=== PATIENT | female | born 1990 | race Caucasian/White ===

== ENCOUNTER → 2016-05-25 | Outpatient (REF) | payer OTHER | LOC: M LAB REF 09:42 | PROVIDERS: ATTEND Physician Assistant | DX: N39.0 Urinary tract infection, site not specified (principal) ==

== ENCOUNTER → 2016-07-30 | Outpatient (REF) | payer OTHER | LOC: M LAB REF 16:22 | PROVIDERS: ATTEND Physician Assistant | DX: R50.9 Fever, unspecified (principal) ==

== ENCOUNTER → 2016-08-09 | Outpatient (CLI) | payer OTHER ==
[2016-08-09 11:46] LABS: MEAN CORPUSCULAR HEMOGLOBIN 27.4 pg (27.0-33.0); MEAN CORPUSCULAR HGB CONC 33.1 g/dl (32.0-36.5); MEAN CORPUSCULAR VOLUME 82.8 fl (80.0-96.0); RED CELL DISTRIBUTION WIDTH 12.5 % (11.5-14.5); WHITE BLOOD COUNT 5.1 K/mm3 (4.0-10.0)
[2016-08-09 12:42] LABS: ALBUMIN 3.8 GM/DL (3.2-5.2); ALBUMIN/GLOBULIN RATIO 1.36 (1.00-1.93); ALKALINE PHOSPHATASE 51 U/L (45-117); ALT/SGPT 19 U/L (12-78); ANION GAP 6 MEQ/L (8-16); AST/SGOT 13 U/L (15-37); BILIRUBIN,TOTAL 0.6 MG/DL (0.2-1.0); BLOOD UREA NITROGEN 16 MG/DL (7-18); CALCIUM LEVEL 8.9 MG/DL (8.5-10.1); CARBON DIOXIDE LEVEL 30 MEQ/L (21-32); CHLORIDE LEVEL 104 MEQ/L (98-107); CREATININE FOR GFR 0.76 MG/DL (0.55-1.02); GLOMERULAR FILTRATION RATE > 60.0 (>60); GLUCOSE, FASTING 85 MG/DL (70-105); POTASSIUM SERUM 4.4 MEQ/L (3.5-5.1); SODIUM LEVEL 140 MEQ/L (136-145); TOTAL PROTEIN 6.6 GM/DL (6.4-8.2)
== END ==
LOC: M LAB 10:56
PROVIDERS: ATTEND Family Medicine
DX: R51 Headache (principal); R42 Dizziness and giddiness; H53.8 Other visual disturbances

== ENCOUNTER → 2016-08-13 | Outpatient (CLI) | payer OTHER ==
--- NOTE | 2016-08-13 14:05 | REP ---
MR BRAIN WITHOUT CONTRAST: HISTORY: Headache. There are no areas of abnormal signal intensity in the brain. There is no intraparenchymal hemorrhage, infarct, mass or midline shift. The ventricular system is normal in appearance. There is no extracerebral collection. The sinuses are clear. IMPRESSION: There is no intracranial lesion. Signed by Nathan Melendez MD 08/13/2016 02:05 P
== END ==
LOC: M RAD 09:52
PROVIDERS: ATTEND Family Medicine
DX: R51 Headache (principal)

== ENCOUNTER 2016-12-18 16:00 | Emergency (ER) | payer OTHER ==
[~2016-12-18] VITALS: Ht 157.5 cm; Wt 50.0 kg
[2016-12-18] MEDS ORDERED: XANA1TAB2 PO (16:09)
[2016-12-18] MEDS ORDERED: [UNRECOGNIZED DRUG - CODE] PO (16:10)
[2016-12-18] MEDS ORDERED: PANTOPRAZOLE 40MG INJ (PROTONIX) (C9113) IV ONE (16:30)
[2016-12-18] MEDS ORDERED: GI COCKTAIL 50ML BTL(HYOSCYAMINE/MAALOX/LIDOCAINE VISCOUS)(1:3:1) PO ONE (16:30)
[2016-12-18 17:00] LABS: BASO % 0.2 % (0.0-1.0); CONTROL LINE HCG INT CTR LINE PRESENT; EOS # 0.1 K/mm3 (0.0-0.50); EOS % 1.3 % (0.0-3.0); LARGE UNSTAINED CELL # 0.1 K/mm3 (0.0-0.4); LYMPH # 1.4 K/mm3 (1.5-6.5); LYMPH % 13.8 % (24.0-44.0); MEAN CORPUSCULAR HEMOGLOBIN 28.6 pg (27.0-33.0); MEAN CORPUSCULAR HGB CONC 33.6 g/dl (32.0-36.5); MEAN CORPUSCULAR VOLUME 85.1 fl (80.0-96.0); MONO # 0.4 K/mm3 (0.0-0.8); MONO % 4.2 % (0.0-5.0); NEUTROPHILS # 7.4 K/mm3 (1.8-7.7); NEUTROPHILS % 79.5 % (36.0-66.0); PLATELET COUNT, AUTOMATED 266 k/mm3 (150-450); WHITE BLOOD COUNT 9.3 K/mm3 (4.0-10.0)
[2016-12-18 17:07] LABS: ALBUMIN 4.2 GM/DL (3.2-5.2); ALBUMIN/GLOBULIN RATIO 1.35 (1.00-1.93); ALKALINE PHOSPHATASE 55 U/L (45-117); ALT/SGPT 18 U/L (12-78); AMYLASE 65 U/L (25-115); ANION GAP 9 MEQ/L (8-16); AST/SGOT 15 U/L (15-37); BILIRUBIN,DIRECT 0.2 MG/DL (0.0-0.2); BILIRUBIN,TOTAL 0.6 MG/DL (0.2-1.0); BLOOD UREA NITROGEN 14 MG/DL (7-18); CALCIUM LEVEL 8.7 MG/DL (8.5-10.1); CARBON DIOXIDE LEVEL 28 MEQ/L (21-32); CHLORIDE LEVEL 106 MEQ/L (98-107); CREATININE FOR GFR 0.76 MG/DL (0.55-1.02); GLOMERULAR FILTRATION RATE > 60.0 (>60); GLUCOSE, FASTING 95 MG/DL (70-105); POTASSIUM SERUM 3.7 MEQ/L (3.5-5.1); SODIUM LEVEL 143 MEQ/L (136-145); TOTAL PROTEIN 7.3 GM/DL (6.4-8.2)
[2016-12-18] MEDS ORDERED: PROT1TAB2 PO (17:27)
[2016-12-18 17:34] VITALS: BP 123/71
--- NOTE | 2016-12-18 17:58 | REP ---
ABDOMEN, FLAT UPRIGHT PA CHEST, THREE VIEWS: HISTORY: Abdominal pain. Air is present in the small and large intestine. There are no air fluid levels or dilated loops of intestine. There is no pneumoperitoneum. The lungs are clear. IMPRESSION: Nonspecific bowel gas pattern. Signed by Nathan Melendez MD 12/18/2016 06:24 P
== END 2016-12-18 17:57 | disposition home or self-care (01) ==
LOC: M ED 16:00
DX: K29.70 Gastritis, unspecified, without bleeding (principal); F41.9 Anxiety disorder, unspecified; Z79.899 Other long term (current) drug therapy
CPT/HCPCS: 74022; 80048; 80076; 81001; 82150; 83690; 84703; 85025; 87086; 96374; 99283; C9113

== ENCOUNTER → 2016-12-27 | Outpatient (CLI) | payer OTHER ==
[~2016-12-27] MED LIST: E-Z-GAS II EFFERVESCENT PACKET (SODIUM BICARB./CITRIC ACID/SIMETHICONE) As Ordered ONE; E-Z-HD 98% w/w 340GM SUSP BTL As Ordered ONE; E-Z-PAQUE 96% w/w SUSP 176GM BTL As Ordered ONE; PROT1TAB2 PO; XANA1TAB2 PO; [UNRECOGNIZED DRUG - CODE] PO
--- NOTE | 2016-12-27 16:51 | REP ---
Upper GI air contrast The procedure was performed under the direct supervision of Dr. Means. Liquid barium and gas producing crystals were given in the erect position as well as liquid barium in the prone oblique position in order to perform a double contrast upper GI examination. The oral and pharyngeal stages of deglutition are unremarkable. Esophageal transport is prompt and efficient and there is no esophagitis or stricture mucosal ring or hiatal hernia. There is gastroesophageal reflux demonstrated to below the level of the martina. The stomach heck are normally outlined . The rugal folds are smooth and regular. There is no gastritis neoplasm or ulcer disease. The duodenal heck are normally outlined . The mucosal folds are smooth and regular. There is no duodenitis pancreatitis peptic ulcer disease or neoplasm. The visualized portion of the proximal small bowel appears normal in course and caliber. Impression: There is gastroesophageal reflux demonstrated to below the level of the martina, otherwise, essentially unremarkable double contrast upper GI examination. 1 minute and 1 second of fluoro time was utilized for this procedure. Reviewed by KELLY Love 12/27/2016 04:36 PSigned by Oracio Means MD 12/27/2016 04:42 P
== END ==
LOC: M RAD 09:19
PROVIDERS: ATTEND Family Medicine
DX: R10.9 Unspecified abdominal pain (principal)

== ENCOUNTER 2017-09-28 13:12 | Emergency (ER) | payer OTHER ==
[2017-09-28] MEDS: AUGMENTIN 875 MG TAB PO (13:38)
[2017-09-28] MEDS: ADACEL/BOOSTRIX VACCINE (DIPHTH/PERTUSS/ACELL/TETANUS)0.5ML SYR (90715) IM (13:39)
[2017-09-28] MEDS: LIDOCAINE 2% MDV 20 ML VIAL SC (13:39)
== END 2017-09-28 14:40 | disposition home or self-care (01) ==
LOC: M ED 13:12
DX: S61.210A Laceration without foreign body of right index finger without damage to nail, initial encounter (principal); S60.021A Contusion of right index finger without damage to nail, initial encounter; W54.0XXA Bitten by dog, initial encounter; Y92.098 Other place in other non-institutional residence as the place of occurrence of the external cause; Z79.899 Other long term (current) drug therapy
CPT/HCPCS: 90715

== ENCOUNTER → 2018-01-01 | Outpatient (REF) | payer OTHER ==
[2018-01-01 20:44] LABS: CHLAMYDIA DNA AMPLIFICATION NEGATIVE (NEGATIVE); GC DNA AMPLIFICATION NEGATIVE (NEGATIVE)
== END ==
LOC: M LAB REF 17:10
DX: Z11.3 Encounter for screening for infections with a predominantly sexual mode of transmission (principal)
CPT/HCPCS: 87591

== ENCOUNTER → 2018-01-01 | Outpatient (CLI) | payer OTHER ==
[2018-01-02 12:17] LABS: HEPATITIS C VIRUS ABY INDEX 0.1 INDEX (<0.8)
[2018-01-02 12:17] LABS: HEPATITIS A ANTIBODY IGM NEGATIVE (NEGATIVE); HEPATITIS B CORE ANTIBODY IGM NEGATIVE (NEGATIVE); HEPATITIS B SURFACE ANTIGEN NEGATIVE (NEGATIVE); HIV 1&2 SCREEN CENTAUR NEGATIVE (NEGATIVE)
== END ==
LOC: M SMT 14:38
DX: Z11.3 Encounter for screening for infections with a predominantly sexual mode of transmission (principal)
CPT/HCPCS: 87340

== ENCOUNTER → 2018-09-23 | Outpatient (REF) | payer OTHER, SELFPAY ==
[~2018-09-23] MED LIST changes: +AUGM875T28 PO; -E-Z-GAS II EFFERVESCENT PACKET (SODIUM BICARB./CITRIC ACID/SIMETHICONE) As Ordered ONE; -E-Z-HD 98% w/w 340GM SUSP BTL As Ordered ONE; -E-Z-PAQUE 96% w/w SUSP 176GM BTL As Ordered ONE; +HYDR-3715 PO; +MELA5TAB7 PO; -[UNRECOGNIZED DRUG - CODE] PO
== END ==
LOC: M LAB REF 13:04
PROVIDERS: ATTEND Physician Assistant
DX: R30.0 Dysuria (principal)

== ENCOUNTER → 2018-09-30 | Outpatient (CLI) | payer OTHER ==
[2018-09-30 10:04] LABS: HEMOGLOBIN 12.5 g/dl (12.0-15.5); MEAN CORPUSCULAR HEMOGLOBIN 27.4 pg (27.0-33.0); MEAN CORPUSCULAR HGB CONC 32.9 g/dl (32.0-36.5); MEAN CORPUSCULAR VOLUME 83.3 fl (80.0-96.0); PLATELET COUNT, AUTOMATED 290 10^3/uL (150-450); RED BLOOD COUNT 4.56 10^6/uL (4.00-5.40); WHITE BLOOD COUNT 6.7 10^3/uL (4.0-10.0)
[2018-09-30 10:28] LABS: HEMOGLOBIN A1c 5.2 %
[2018-09-30 10:37] LABS: ALBUMIN 3.9 GM/DL (3.2-5.2); ALT/SGPT 18 U/L (12-78); BILIRUBIN,TOTAL 0.5 MG/DL (0.2-1.0); BLOOD UREA NITROGEN 20 MG/DL (7-18); CALCIUM LEVEL 8.7 MG/DL (8.5-10.1); CARBON DIOXIDE LEVEL 28 MEQ/L (21-32); CHLORIDE LEVEL 107 MEQ/L (98-107); CHOLESTEROL LEVEL 181 MG/DL (<200); CHOLESTEROL RISK RATIO 2.291 (<5); CREATININE FOR GFR 0.72 MG/DL (0.55-1.30); GLOMERULAR FILTRATION RATE > 60.0 (>60); GLUCOSE, FASTING 94 MG/DL (70-100); HDL CHOLESTEROL 79 MG/DL (>40); IRON (FE) 107 UG/DL (50-170); LDL CHOLESTEROL 92 MG/DL (<100); NON-HDL-C 102 MG/DL; PERCENT SATURATION 33.2 % (13.2-45.0); POTASSIUM SERUM 3.9 MEQ/L (3.5-5.1); SODIUM LEVEL 141 MEQ/L (136-145); THYROXINE (T4) 8.8 UG/DL (4.5-12.0); TOTAL IRON BINDING CAPACITY 322 UG/DL (250-450); TOTAL PROTEIN 6.9 GM/DL (6.4-8.2); TRIGLYCERIDES LEVEL 51 MG/DL (<150)
[2018-09-30 10:44] LABS: TOTAL 25(OH) VITAMIN D 24.3 NG/ML (30.0-100.0); TOTAL T3 99.5 NG/DL (60.0-181.0)
== END ==
LOC: M LAB 09:34
PROVIDERS: ATTEND Family Medicine
DX: D64.9 Anemia, unspecified (principal); R53.83 Other fatigue; E03.9 Hypothyroidism, unspecified

== ENCOUNTER → 2019-09-15 | Outpatient (CLI) | payer OTHER ==
--- NOTE | 2019-09-15 10:25 | REPMRS ---
Patient History No known family history of cancer. denied, patient shielded. Indicated problem(s): bilateral skin changes to breast Bilateral pain. Patient has had a rash on her breasts times 3 weeks and bilateral breast pain. She states that she has been on 2 different oral antibiotics and prendisone. She states is is getting better now. Diagnostic Bilateral Mammo: September 15, 2019 - Exam #: [id number] Bilateral CC and MLO view(s) were taken. Technologist: Juanita Arnold, Technologist No prior studies available for comparison. FINDINGS: The breast tissue is heterogeneously dense. This may lower the sensitivity of mammography. The Volpara volumetric breast density category is: C. There is no evidence of dominant mass, architectural distortion, or grouped microcalcification typical of malignancy. 3-D tomosynthesis shows no additional findings. Assessment: BI-RADS/ACR category 1 mammogram. Negative Mammogram. Recommendation Routine screening mammogram of both breasts in 1 year (for women over age 40). This patient's Lifetime Breast Cancer RIsk is estimated at 9.8 %. This mammogram was interpreted with the aid of an FDA-approved computer-aided dectection system. Electronically Signed By: Peter Means MD 09/15/19 1024
== END ==
LOC: M WHC 09:50
PROVIDERS: ATTEND Nurse Practitioner Family
DX: N64.4 Mastodynia (principal); R21 Rash and other nonspecific skin eruption
CPT/HCPCS: 77066; G0279

== ENCOUNTER → 2019-12-14 | Outpatient (CLI) | payer OTHER ==
[2019-12-14 15:38] LABS: BASO % 0.2 % (0.0-1.0); EOS # 0.1 10^3/uL (0.0-0.5); EOS % 0.9 % (0.0-3.0); HEMATOCRIT 40.3 % (36.0-47.0); HEMOGLOBIN 13.1 g/dl (12.0-15.5); LYMPH # 1.6 10^3/uL (1.5-5.0); LYMPH % 16.1 % (24.0-44.0); MEAN CORPUSCULAR HEMOGLOBIN 27.9 pg (27.0-33.0); MEAN CORPUSCULAR HGB CONC 32.5 g/dl (32.0-36.5); MEAN CORPUSCULAR VOLUME 85.9 fl (80.0-96.0); MONO # 0.8 10^3/uL (0.0-0.8); MONO % 7.8 % (0.0-5.0); NEUTROPHILS # 7.4 10^3/uL (1.5-8.5); NEUTROPHILS % 74.6 % (36.0-66.0); PLATELET COUNT, AUTOMATED 351 10^3/uL (150-450); RED BLOOD COUNT 4.69 10^6/uL (4.00-5.40); WHITE BLOOD COUNT 9.9 10^3/uL (4.0-10.0)
[2019-12-14 17:14] LABS: CHLAMYDIA DNA AMPLIFICATION NEGATIVE (NEGATIVE); GC DNA AMPLIFICATION NEGATIVE (NEGATIVE)
[2019-12-14 23:01] LABS: HEPATITIS C VIRUS ABY INDEX 0.2 INDEX (<0.8); HIV 1&2 SCREEN CENTAUR NEGATIVE (NEGATIVE)
== END ==
LOC: M PLALAB 10:37
PROVIDERS: ATTEND Advanced Practice Midwife
DX: Z34.81 Encounter for supervision of other normal pregnancy, first trimester (principal)

== ENCOUNTER → 2020-01-12 | Outpatient (CLI) | payer OTHER | LOC: M PLALAB 08:46 | PROVIDERS: ATTEND Advanced Practice Midwife | DX: Z34.81 Encounter for supervision of other normal pregnancy, first trimester (principal); Z3A.00 Weeks of gestation of pregnancy not specified ==

== ENCOUNTER → 2020-02-22 | Outpatient (CLI) | payer OTHER ==
--- NOTE | 2020-02-23 12:13 | REP ---
INDICATION: ANATOMY. COMPARISON: None. TECHNIQUE: Real-time sonographic evaluation of the gravid uterus performed. FINDINGS: Estimated gestational age is19 weeks 0 days, EDC 07/18/2020. This is based on today's ultrasound measurements. Presentation: Cephalic Placenta posterior, grade 1, without evidence of placenta previa. The inferior margin of the placenta is approximately 2 cm from the internal cervical os. heart rate is recorded at 161 beats per minute. Amniotic fluid is subjectively normal. Closed cervical length is measured at 3.6 cm. Biometry chart: BPD: 41 mm, 18 weeks 3 days, 33rd percentile. HC: 163 mm, 19 weeks days, 51st percentile AC: 143 mm, 19 weeks 5 days, 63rd percentile Femur length: 29 mm, 19 weeks 0 days, 48th percentile HC to AC ratio: 1.14, normal range 1.06-1.25. Estimated weight: 284g. anatomy: Cranium: Grossly normal Lateral Ventricles/Choroid Plexus: Grossly normal Posterior Fossa/Cerebellum: Grossly normal Nose/lips/profile: Grossly normal Four chamber heart: Grossly normal Right ventricular outflow tract: Grossly normal Left ventricular outflow tract: Grossly normal Left-sided stomach: Grossly normal Kidneys: Grossly normal Bladder: Grossly normal Cord Insertion: Grossly normal 3 vessel cord: Grossly normal Spine: Grossly normal IMPRESSION: Viable single intrauterine gestation as above. <Electronically signed by Odin Phelps > 02/23/20 [id number]
== END ==
LOC: M WHC 15:18
PROVIDERS: ATTEND Advanced Practice Midwife
DX: Z34.82 Encounter for supervision of other normal pregnancy, second trimester (principal); Z36.89 Encounter for other specified antenatal screening; Z3A.18 18 weeks gestation of pregnancy

== ENCOUNTER → 2020-03-21 | Outpatient (CLI) | payer OTHER ==
--- NOTE | 2020-03-21 08:23 | REPVR ---
PROCEDURE INFORMATION: Exam: MR Thoracic Spine Without Contrast Exam date and time: 03/21/2020 6:45 AM Age: 29 years old Clinical indication: Pain in thoracic spine; With radiculopathy; Bilateral; Additional info: Back pain affecting pregnacy TECHNIQUE: Imaging protocol: Multiplanar magnetic resonance images of the thoracic spine without contrast. COMPARISON: No relevant prior studies available. FINDINGS: Vertebrae: Unremarkable, including intervertebral discs. Spinal cord: See "Discs/Spinal canal/Neural foramina" finding. Discs/Spinal canal/Neural foramina: There is moderate extramedullary artifact throughout the spinal canal which limits evaluation. The spinal cord proper demonstrates normal caliber and signal throughout its course. The conus medullaris is within normal limits. Thyroid: A 2.3 cm right thyroid nodule is suspected but not adequately characterized on this exam. Heart: The heart appears prominent but is not imaged in its entirety on this exam and therefore not fully characterized. Reproductive: Sagittal hooker laster image demonstrates an enlarged uterus consistent with patient's . Soft tissues: Unremarkable. IMPRESSION: 1. There is moderate extramedullary artifact throughout the spinal canal which limits evaluation. The spinal cord proper demonstrates normal caliber and signal throughout its course. The conus medullaris is within normal limits. 2. The heart appears prominent but is not imaged in its entirety on this exam and therefore not fully characterized. Please correlate clinically. 3. A 2.3 cm right thyroid nodule is suspected but not adequately characterized on this exam. Followup thyroid ultrasound is recommended. 4. Sagittal hooker laster image demonstrates an enlarged uterus consistent with patient's . Electronically signed by: Telly Mon On 03/21/2020 08:23:18 AM
--- NOTE | 2020-03-21 08:42 | REPVR ---
PROCEDURE INFORMATION: Exam: MR Lumbar Spine Without Contrast. Exam date and time: 03/21/2020 6:45 AM Age: 29 years old Clinical indication: Low back pain; Additional info: Back pain affecting pregnacy TECHNIQUE: Imaging protocol: Multiplanar magnetic resonance images of the lumbar spine without intravenous contrast. COMPARISON: No relevant prior studies available. FINDINGS: Vertebrae: Unremarkable. Spinal cord: Normal signal. No cord compression. L1-L2: No significant disc disease. No significant spinal canal stenosis. No neural foraminal stenosis. L2-L3: No significant disc disease. No significant spinal canal stenosis. No neural foraminal stenosis. L3-L4: No significant disc disease. No significant spinal canal stenosis. No neural foraminal stenosis. L4-L5: There is disc desiccation. There is a moderate disc bulge with a small superimposed central disc herniation. Disc bulging extends into both neural foramen causing mild bilateral neural foraminal narrowing. There is facet arthropathy and ligamentum flavum hypertrophy. There is mild spinal canal stenosis. L5-S1: There is disc space narrowing and desiccation. There are moderate degenerative end plate changes at this level. There is a moderate disc bulge with a small superimposed central disc herniation. Disc bulging extends into both neural foramen causing mild bilateral neural foraminal narrowing. There is facet arthropathy and ligamentum flavum hypertrophy. Reproductive: The uterus is enlarged consistent with patient's . Soft tissues: Unremarkable. IMPRESSION: 1. Disc bulges and herniations at L4/5 and L5/S1. Please see details above. 2. The uterus is enlarged consistent with patient's . Electronically signed by: Telly Mon On 03/21/2020 08:42:56 AM
== END ==
LOC: M RAD 06:42
PROVIDERS: ATTEND Specialist
DX: O26.899 Other specified pregnancy related conditions, unspecified trimester (principal)

== ENCOUNTER → 2020-04-17 | Outpatient (REF) | payer OTHER ==
[2020-04-17 14:42] LABS: HEMATOCRIT 35.2 % (36.0-47.0); HEMOGLOBIN 11.2 g/dl (12.0-15.5); MEAN CORPUSCULAR HEMOGLOBIN 27.3 pg (27.0-33.0); MEAN CORPUSCULAR HGB CONC 31.8 g/dl (32.0-36.5); MEAN CORPUSCULAR VOLUME 85.9 fl (80.0-96.0); PLATELET COUNT, AUTOMATED 296 10^3/uL (150-450); WHITE BLOOD COUNT 12.2 10^3/uL (4.0-10.0)
== END ==
LOC: M PLALAB 12:08
PROVIDERS: ATTEND Advanced Practice Midwife
DX: Z3A.25 25 weeks gestation of pregnancy (principal)

== ENCOUNTER → 2020-04-27 | Outpatient (CLI) | payer OTHER | LOC: M LAB 08:26 | PROVIDERS: ATTEND Advanced Practice Midwife | DX: Z34.83 Encounter for supervision of other normal pregnancy, third trimester (principal); Z3A.28 28 weeks gestation of pregnancy ==

== ENCOUNTER 2020-05-16 10:36 | Outpatient (CLI) | payer OTHER ==
[~2020-05-16] VITALS: Ht 157.5 cm; Wt 69.3 kg
[2020-05-16 10:57] VITALS: BP 104/63
[2020-05-16] MEDS ORDERED: BENA25CA4 PO (11:03)
[2020-05-16] MEDS ORDERED: PRENTAB9 PO (11:03)
[2020-05-16] MEDS ORDERED: LACTATED RINGER'S 1000 ML IV ONE (11:30)
[2020-05-16] MEDS ORDERED: ONDANSETRON 4MG/2ML VIAL IV ONE (11:30)
[2020-05-16] MEDS ORDERED: LR 1,000 ML IV SCH (11:30)
[2020-05-16 11:54] VITALS: BP 123/76
[2020-05-16 13:02] VITALS: BP 123/68
--- NOTE | 2020-05-16 13:58 | IPNPDOC ---
Text Note Date of Service The patient was seen on 05/16/20. NOTE S: 29yo G31 at 31w0d presents N/V and cramping/ctx that started this morning. She has been unable to keep down fluids. Edward f/c, LOF or vaginal bleeding. O: vss, AF . Cat 1 tracing. No ctx Gen: well appearing abd: soft, gravid, nttp -Provided with 1L IV fluids and 4mg Zofran. Symptoms improved and was able to tolerate PO A/P: 29yo at 31w0d with n/v, resolved reassuring status -home with PTL precautions and FKCs -f/u at next OB appt. Chloe Cuevas MD VS,Nona, I+O VS, Nona, I+O Vital Signs Date Time Temp Pulse Resp B/P (MAP) Pulse Ox O2 Delivery O2 Flow Rate FiO2 05/16/20 13:02 91 16 123/68 (86) 05/16/20 10:57 98.4 CHLOE CUEVAS MD. May 16, 2020 13:58
[2020-05-16 14:31] VITALS: BP 120/67
== END 2020-05-16 14:45 | disposition home or self-care (01) ==
LOC: M LDO 10:36
PROVIDERS: ATTEND Obstetrics & Gynecology
DX: O21.9 Vomiting of pregnancy, unspecified (principal); Z3A.31 31 weeks gestation of pregnancy
CPT/HCPCS: 59025; 96374; G0378; G0463; J2405

== ENCOUNTER → 2020-06-20 | Outpatient (REF) | payer OTHER ==
[~2020-06-20] MED LIST changes: +BENA25CA4 PO; +PRENTAB9 PO
== END ==
LOC: M PLALAB 22:31
PROVIDERS: ATTEND Obstetrics & Gynecology
DX: Z3A.36 36 weeks gestation of pregnancy (principal)

== ENCOUNTER → 2020-06-22 | Outpatient (REF) | payer OTHER | LOC: M SFHCWAGY 13:06 | PROVIDERS: ATTEND Obstetrics & Gynecology | DX: Z3A.36 36 weeks gestation of pregnancy (principal) ==

== ENCOUNTER 2020-07-12 06:50 | Inpatient (IN) | payer OTHER ==
[~2020-07-12] VITALS: Ht 157.5 cm; Wt 77.3 kg
[2020-07-12] VITALS (34 sets, daily range): BP systolic 114–182; BP diastolic 68–108
[2020-07-12] MEDS ORDERED: OXYTOCIN DRIP 30 UNITS in IV 1 EA IV PRN (08:05)
[2020-07-12] MEDS ORDERED: LIDOCAINE 1% MDV 20ML VIAL INFIL PRN (08:05)
[2020-07-12] MEDS ORDERED: METHYLERGONOVINE MALEATE 0.2 MG/ML VIAL (J2210) IM PRN (08:05)
[2020-07-12] MEDS: miSOPROStol 50MCG 1/2 TABLET PO SCH ×2 (09:00→13:04)
[2020-07-12 09:06] LABS: HEMATOCRIT 36.3 % (36.0-47.0); MEAN CORPUSCULAR HEMOGLOBIN 27.9 pg (27.0-33.0); MEAN CORPUSCULAR HGB CONC 33.1 g/dl (32.0-36.5); MEAN CORPUSCULAR VOLUME 84.4 fl (80.0-96.0); PLATELET COUNT, AUTOMATED 252 10^3/uL (150-450); WHITE BLOOD COUNT 11.9 10^3/uL (4.0-10.0)
--- NOTE | 2020-07-12 09:13 | HPE ---
HISTORY AND PHYSICAL DATE OF ADMISSION: 07/12/2020 HISTORY OF PRESENT ILLNESS: Elizabeth is a 29-year-old 3, para 1-0-1-0 at 39-1/7 weeks gestation with an estimated date of confinement (EDC) of 07/18/2020 based on last menstrual period and confirmed by first trimester ultrasound. She presents to labor and delivery today for induction of labor for social reasons. care was [facility] in the first trimester. course complicated by herniated disc L4-5, L5-S1. She denies regular painful contractions, vaginal bleeding, and leakage of fluid. The fetus has been active. OBSTETRIC HISTORY: 1. August 2007, 39 weeks gestation, 9 pound male, vaginal delivery, [facility]. No complications. 2. 2011 elective termination of . OBSTETRIC LABORATORIES: B positive. Antibody screen negative. Gonorrhea and chlamydia negative. HIV negative. Rubella immune. Syphilis negative. Hepatitis B negative. Hepatitis C negative. Panorama low risk for aneuploidy. Gestational diabetic screening elevated at 172. Three hour glucose tolerance test fasting 86, one hour 177, two hour 158, and one 128. Urine culture showed no growth and her group B Streptococcus (GBS) is negative. PAST MEDICAL HISTORY: 1. Anxiety. 2. ASCUS PAP smear with negative HPV. 3. Childhood varicella. SURGERIES: 1. Appendectomy. 2. Tonsillectomy. FAMILY HISTORY: Hypertension, high cholesterol. SOCIAL HISTORY: The patient is . She is a nonsmoker. She denies alcohol and drug use. She denies any history of sexually transmitted infections and denies history of abuse, physical, sexual and emotional. CURRENT MEDICATIONS: vitamin. ALLERGIES: No known drug allergies. OBJECTIVE: VITAL SIGNS: Temperature 98.5, pulse 93, blood pressure 127/86. GENERAL: She is alert and oriented times three. No distress. Smiling and talkative. heart rate is 130 with moderate variability, positive accelerations, negative decelerations. An occasional contraction. ABDOMEN: Gravid. Cephalic presentation. Estimated weight 7.5 to 8 pounds. STERILE VAGINAL EXAMINATION: Fingertip dilated, 50% effaced, -2 station, very posterior, soft. No show with the exam. ASSESSMENT: Intrauterine at 39-1/7 weeks, heart rate category 1. Term . PLAN: Per consultation with Dr. Nathan Crow, admit patient to labor and delivery for induction of labor. Routine laboratory, out of bed ad elias. Regular diet at this time. Start Misoprostol 50 mcg p.o. every 4 hours for cervical ripening. We will likely start Pitocin. The patient desires an epidural when she is in active labor and will consider assisted rupture of membranes to augment her labor. The risks, benefits and alternatives were reviewed with the patient and her . All of their questions have been answered. She has been verbally consented for emergency surgery and blood products if they are necessary. I do anticipate cervical ripening, active labor, and a vaginal delivery.
[2020-07-12] MEDS ORDERED: BUTORPHANOL 2 MG/ML INJ (J0595) IV ONE (15:20)
[2020-07-12] MEDS ORDERED: PROMETHAZINE INJ 25 MG/ML VIAL (J2550) IV ONE (15:20)
[2020-07-12] MEDS ORDERED: OXYTOCIN DRIP 30 UNITS in IV 1 EA IV SCH ×2 (16:00→23:48)
[2020-07-12] MEDS: LR 1,000 ML IV SCH ×2 (17:13→20:35)
[2020-07-12] MEDS ORDERED: FENTANYL 2MCG/ML ROPIVACAINE 0.2% IN 0.9% NACL 100ML IVBAG As Ordered ONE (20:50)
[2020-07-12] MEDS ORDERED: NALOXONE INJ 0.4MG/1ML VIAL (J2310 PER 1MG) IV PRN (23:05)
[2020-07-12] MEDS ORDERED: FENTANYL/ROPIVACAINE/NACL BAG 100 ML EPIDURAL SCH (23:05)
[2020-07-12] MEDS ORDERED: EPIDURAL COMMENT XX SCH (23:05)
[2020-07-12] MEDS ORDERED: ePHEDrine SULFATE 25 MG/5 ML(5MG/ML) SYRINGE IV PRN (23:05)
[2020-07-12] MEDS ORDERED: REFRIGERATOR IV KEYS XX PRN (23:05)
[2020-07-12] MEDS ORDERED: diphenhydrAMINE 50MG/ML VIAL (J1200) IV PRN (23:05)
[2020-07-12] MEDS ORDERED: LACTATED RINGER'S 1000 ML IV PRN (23:05)
[2020-07-12] MEDS ORDERED: ONDANSETRON 4MG/2ML VIAL IV PRN (23:05)
[2020-07-12] MEDS ORDERED: EPIDURAL/PCA KEYS XX PRN (23:05)
[2020-07-12] MEDS ORDERED: ACETAMINOPHEN TAB 650MG DOSE (2X325MG) PO PRN (23:50)
[2020-07-12] MEDS ORDERED: METHYLERGONOVINE MALEATE 0.2 MG TAB PO PRN (23:50)
[2020-07-12] MEDS ORDERED: RHOGAM 300 MCG (1500 IU) INJ (J2790) IM SCH (23:50)
[2020-07-12] MEDS ORDERED: ACETAMINOPHEN 500 MG TAB PO PRN (23:50)
[2020-07-12] MEDS ORDERED: IBUPROFEN 600MG TAB PO PRN (23:50)
[2020-07-12] MEDS ORDERED: ANUSOL HC CREAM 30GM TOP PRN (23:50)
[2020-07-12] MEDS ORDERED: MEASLES,MUMPS,RUBELLA VACCINE INJ (MMR-II) (90707) SC SCH (23:50)
[2020-07-13] VITALS (26 sets, daily range): BP systolic 114–164; BP diastolic 58–108
[2020-07-13] MEDS ORDERED: LR 1,000 ML IV SCH (00:11)
[2020-07-13] MEDS ORDERED: OXYTOCIN DRIP 30 UNITS in IV 1 EA IV SCH (00:15)
[2020-07-13 03:28] LABS: CORD GAS ABE V -8.6; CORD GAS HCO3 V 18.6 MEQ/L; CORD GAS O2 SAT V 61.9 %; CORD GAS PCO2 V 44.5 mmHg; CORD GAS PH V 7.24 UNITS; CORD GAS PO2 V 29.3 mmHg; CORD GAS SBC V 16.9 MEQ/L
[2020-07-13] MEDS ORDERED: LIDOCAINE 1% MDV 20ML VIAL INFIL ONE (04:05)
[2020-07-13 04:56] LABS: ALT/SGPT 14 U/L (12-78); BILIRUBIN,TOTAL 0.2 MG/DL (0.2-1.0); CREATININE FOR GFR 0.63 MG/DL (0.55-1.30); GLOMERULAR FILTRATION RATE > 60.0 (>60); LDH LACTATE DEHYDROGENASE 195 U/L (84-246); URIC ACID 7.3 MG/DL (2.6-6.0)
[2020-07-13 07:18] LABS: HEMATOCRIT 32.6 % (36.0-47.0); HEMOGLOBIN 10.7 g/dl (12.0-15.5); MEAN CORPUSCULAR HEMOGLOBIN 28.2 pg (27.0-33.0); MEAN CORPUSCULAR HGB CONC 32.8 g/dl (32.0-36.5); MEAN CORPUSCULAR VOLUME 85.8 fl (80.0-96.0); PLATELET COUNT, AUTOMATED 246 10^3/uL (150-450)
[2020-07-13] MEDS ORDERED: AMPICILLIN SOD/SULBACTAM SOD 3 GM in D5W MINI-BAG PLUS 100 ML IV ONE (07:45)
[2020-07-13 07:53] LABS: BILIRUBIN,TOTAL 0.3 MG/DL (0.2-1.0); CREATININE FOR GFR 1.22 MG/DL (0.55-1.30); GLOMERULAR FILTRATION RATE 54.7 (>60); URIC ACID 7.5 MG/DL (2.6-6.0)
[2020-07-13] MEDS: PRENATAL VITAMINS CHEWABLE TABLET PO SCH (08:21)
[2020-07-13] MEDS: IBUPROFEN 800 MG TAB PO PRN ×2 (08:21→21:31)
--- NOTE | 2020-07-13 08:37 | DN ---
DELIVERY NOTE DATE OF DELIVERY: 07/13/2020 TIME OF : 0310 GENDER: Male APGARS: 9 and 9. LACERATIONS: Right sulcus. ANESTHESIA: Epidural, 1% Lidocaine. ESTIMATED BLOOD LOSS: 400 mL. COUNTS: Correct and verified. DESCRIPTION OF DELIVERY: Elizabeth is a 29-year-old 3, para 2-0-1-2. She was admitted to labor and delivery for induction of labor, and misoprostol and IV Pitocin were used. Labor did ensue. She used an epidural for her labor coping. She reached complete dilation at 0200. She pushed to a normal spontaneous vaginal delivery of a live male infant in left occiput anterior (BETHANY) position with restitution to left occiput transverse (LOT) position at 0310. There was a nuchal cord x1 reduced with somersault maneuver at the time of delivery. The was crying and active. His mouth and nares were bulb suctioned. He was placed on the maternal abdomen crying and active. Cord was clamped x2 and cut by the father of the baby. Cord blood was obtained, as well as cord gases. Arterial cord gas cancelled due to clotting. Venous cord gas 7.240, base excess of -8.6. Spontaneous expulsion of an intact placenta with three-vessel cord at 0319. Uterine hemostasis achieved with IV Pitocin rapid infusion and uterine fundal massage. Estimated blood loss 400 mL. Perineum and vagina inspected noted to have a right sulcus laceration. The laceration was infiltrated with Lidocaine 1% and repaired with 3-0 Vicryl Rapide in the usual fashion. male weighed 8 pounds 13 ounces (3990 grams). Apgars 9 and 9. Mom is going to breastfeed. The family has named him Navjot. At the close of delivery, lap counts, needle counts, and instrument counts were correct and verified.
[2020-07-13] MEDS: DIBUCAINE 1% OINTMENT 30GM TOP PRN (11:26)
[2020-07-13] MEDS: DOCUSATE SODIUM 100MG CAPSULE PO PRN (21:31)
[2020-07-14] MEDS: IBUPROFEN 800 MG TAB PO PRN (05:45)
[2020-07-14 06:00] VITALS: BP 122/78
--- NOTE | 2020-07-14 08:00 | IPNPDOC ---
Obstetrical Progress Note Date of Service Jul 14, 2020 Subjective SUBJECT: Status post . She has been ambulating, voiding spontaneously without issue and tolerating regular diet. Lochia decreasing/minimal. Pain is well-controlled. Denies headache, visual changes, right upper quadrant pain, shortness breath or chest pain. OBJECTIVE: VITAL SIGNS: Within normal limits (intermittently hypertensive), afebrile. Alert and oriented times three. Abdomen: Fundus firm at U-2. Soft, NTTP. ASSESSMENT: Status post uncomplicated spontaneous vaginal delivery. Vitals within normal limits, afebrile, hemodynamically stable with no evidence of infection. PLAN: Discharge to home today. Tylenol and Motrin for pain. Routine instructions/precautions reviewed. Routine PP visit in 6 weeks in clinic. Objective Vital Signs Date Time Temp Pulse Resp B/P (MAP) Pulse Ox O2 Delivery O2 Flow Rate FiO2 07/14/20 06:00 97.8 79 16 122/78 (93) 98 Room Air SMITA WYMAN DO Jul 14, 2020 08:00
[2020-07-14] MEDS: PRENATAL VITAMINS CHEWABLE TABLET PO SCH (08:44)
[2020-07-14] MEDS: DOCUSATE SODIUM 100MG CAPSULE PO PRN (09:00)
[2020-07-14] MEDS: DIBUCAINE 1% OINTMENT 30GM TOP PRN (09:00)
[2020-07-14 18:00] VITALS: BP 141/86
[2020-07-15 06:00] VITALS: BP 136/90
[2020-07-15] MEDS: PRENATAL VITAMINS CHEWABLE TABLET PO SCH (09:32)
== END 2020-07-15 14:55 | disposition home or self-care (01) | DRG 807 ==
LOC: M LDI 06:50 → M OBS 07-13 10:15
PROVIDERS: ADMIT Advanced Practice Midwife; ATTEND Advanced Practice Midwife
PROC: 3E0P7GC Introduction of Other Therapeutic Substance into Female Reproductive, Via Natural or Artificial Opening (ICD-10-PCS; 2020-07-12)
PROC: 10E0XZZ Delivery of Products of Conception, External Approach (ICD-10-PCS; principal; 2020-07-13)
PROC: 0KQM0ZZ Repair Perineum Muscle, Open Approach (ICD-10-PCS; 2020-07-13)
DX: O71.4 Obstetric high vaginal laceration alone (principal); Z37.0 Single live birth; Z3A.39 39 weeks gestation of pregnancy; O69.81X0 Labor and delivery complicated by cord around neck, without compression, not applicable or unspecified

== ENCOUNTER → 2020-10-02 | Outpatient (REF) | payer OTHER | LOC: M SFHCWAGY 12:53 | PROVIDERS: ATTEND Advanced Practice Midwife | DX: Z12.4 Encounter for screening for malignant neoplasm of cervix (principal); Z01.419 Encounter for gynecological examination (general) (routine) without abnormal findings ==

== ENCOUNTER → 2021-03-13 | Outpatient (CLI) | payer OTHER ==
--- NOTE | 2021-03-13 11:17 | REP ---
INDICATION: ANEMIA, FATIGUE, HYPTOHYROID PT NEEDS LABS AFTER COMPARISON: 12/18/2016 TECHNIQUE: PA and lateral. FINDINGS: The mediastinum and cardiac silhouette are normal. The lung cali are clear and without acute consolidation, effusion, or pneumothorax. The skeletal structures are intact and normal. IMPRESSION: No acute cardiopulmonary process. <Electronically signed by Blane Rice > 03/13/21 1115
[2021-03-13 11:34] LABS: HEMATOCRIT 42.5 % (36.0-47.0); HEMOGLOBIN 13.6 g/dl (12.0-15.5); MEAN CORPUSCULAR HEMOGLOBIN 26.7 pg (27.0-33.0); MEAN CORPUSCULAR VOLUME 83.5 fl (80.0-96.0); PLATELET COUNT, AUTOMATED 342 10^3/uL (150-450); RED BLOOD COUNT 5.09 10^6/uL (4.00-5.40); WHITE BLOOD COUNT 8.3 10^3/uL (4.0-10.0)
[2021-03-13 12:17] LABS: ALBUMIN 4.1 GM/DL (3.2-5.2); ALT/SGPT 18 U/L (12-78); BILIRUBIN,TOTAL 0.4 MG/DL (0.2-1.0); BLOOD UREA NITROGEN 21 MG/DL (7-18); CALCIUM LEVEL 9.8 MG/DL (8.5-10.1); CARBON DIOXIDE LEVEL 28 MEQ/L (21-32); CHLORIDE LEVEL 104 MEQ/L (98-107); CHOLESTEROL LEVEL 244 MG/DL (<200); CREATININE FOR GFR 0.78 MG/DL (0.55-1.30); GLOMERULAR FILTRATION RATE > 60.0 (>60); GLUCOSE, FASTING 80 MG/DL (70-100); HDL CHOLESTEROL 85 MG/DL (>40); IRON (FE) 99 UG/DL (50-170); LDL CHOLESTEROL 149 MG/DL (<100); NON-HDL-C 159 MG/DL; PERCENT SATURATION 28.4 % (13.2-45.0); POTASSIUM SERUM 4.4 MEQ/L (3.5-5.1); SODIUM LEVEL 138 MEQ/L (136-145); THYROXINE (T4) 8.8 UG/DL (4.5-12.0); TOTAL IRON BINDING CAPACITY 348 UG/DL (250-450); TOTAL PROTEIN 7.5 GM/DL (6.4-8.2); TRIGLYCERIDES LEVEL 52 MG/DL (<150)
[2021-03-13 12:45] LABS: HEMOGLOBIN A1c 5.3 %
[2021-03-13 14:00] LABS: TOTAL 25(OH) VITAMIN D 28.5 NG/ML (30.0-100.0)
[2021-03-13 14:01] LABS: TOTAL T3 74.6 NG/DL (60.0-181.0)
[2021-03-13 14:15] LABS: VITAMIN B12 LEVEL 382 PG/ML (247-911)
== END ==
LOC: M LAB 10:53
PROVIDERS: ATTEND Family Medicine
DX: D64.9 Anemia, unspecified (principal); E03.9 Hypothyroidism, unspecified; R53.83 Other fatigue

== ENCOUNTER → 2021-03-21 | Outpatient (CLI) | payer OTHER ==
--- NOTE | 2021-03-21 14:08 | REP ---
INDICATION: RT LOBE MASS. COMPARISON: No prior thyroid ultrasound exams for comparison TECHNIQUE: Real-time sonographic evaluation of the thyroid gland with Doppler FINDINGS: The right lobe of the thyroid gland measures 3.8 x 1.2 x 1.2 cm and the left lobe measures 3 x 1.1 x 0.9 cm. The isthmus measures 2 mm. There are no cystic or solid masses. The thyroid parenchymal echo pattern is homogeneous. IMPRESSION: No abnormalities identified. <Electronically signed by Con Fernandez > 03/21/21 0856
== END ==
LOC: M RAD 13:42
PROVIDERS: ATTEND Family Medicine
DX: I89.0 Lymphedema, not elsewhere classified (principal)

== ENCOUNTER → 2021-07-12 | Outpatient (REF) | payer OTHER | LOC: M SFHCDERM 17:13 | PROVIDERS: ATTEND Physician Assistant | DX: D22.4 Melanocytic nevi of scalp and neck (principal); D22.72 Melanocytic nevi of left lower limb, including hip; D22.62 Melanocytic nevi of left upper limb, including shoulder ==

== ENCOUNTER → 2021-10-11 | Outpatient (REF) | payer OTHER ==
[2021-10-11 18:17] LABS: APPEARANCE, URINE CLOUDY (CLEAR); BACTERIA, URINE AUTO 3+ (NEGATIVE); BILIRUBIN, URINE AUTO NEGATIVE (NEGATIVE); BLOOD, URINE BLOOD 3+ (NEGATIVE); COLOR, URINE YELLOW (YELLOW); GLUCOSE, URINE (UA) AUTO NEGATIVE (NEGATIVE); KETONE, URINE AUTO NEGATIVE (NEGATIVE); LEUKOCYTE ESTERASE, URINE AUTO 3+ (NEGATIVE); NITRITE, URINE AUTO POSITIVE (NEGATIVE); PROTEIN, URINE AUTO 1+ mg/dL (NEGATIVE); RBC, URINE AUTO TNTC /HPF (0-3); SPECIFIC GRAVITY URINE AUTO 1.018 (1.002-1.035); SQUAMOUS EPITHELIAL CELL UR AU 0 /HPF (0-6); UROBILINOGEN, URINE AUTO 0.2 mg/dL (0.0-2.0); WBC, URINE AUTO TNTC /HPF (0-3)
== END ==
LOC: M LAB REF 16:51
PROVIDERS: ATTEND Physician Assistant
DX: N39.0 Urinary tract infection, site not specified (principal)

== ENCOUNTER → 2022-03-27 | Outpatient (CLI) | payer OTHER ==
[2022-03-27 12:28] LABS: HEMATOCRIT 41.5 % (36.0-47.0); HEMOGLOBIN 13.3 g/dl (12.0-15.5); MEAN CORPUSCULAR HEMOGLOBIN 26.8 pg (27.0-33.0); MEAN CORPUSCULAR VOLUME 83.7 fl (80.0-96.0); PLATELET COUNT, AUTOMATED 379 10^3/uL (150-450); RED BLOOD COUNT 4.96 10^6/uL (4.00-5.40)
[2022-03-27 13:06] LABS: IRON (FE) 82 UG/DL (50-170); PERCENT SATURATION 20.7 % (13.2-45.0); TOTAL IRON BINDING CAPACITY 396 UG/DL (250-425)
[2022-03-27 13:07] LABS: ALBUMIN 4.1 G/DL (3.2-5.2); ALKALINE PHOSPHATASE 64 U/L (46-116); ALT/SGPT 18 U/L (7.0-40); AST/SGOT 29 U/L (<34); BILIRUBIN,TOTAL 0.4 MG/DL (0.3-1.2); BLOOD UREA NITROGEN 18 MG/DL (9-23); CALCIUM LEVEL 9.8 MG/DL (8.5-10.1); CARBON DIOXIDE LEVEL 28 MMOL/L (20-31); CHLORIDE LEVEL 101 MMOL/L (98-107); CHOLESTEROL LEVEL 190 MG/DL (<200); CHOLESTEROL RISK RATIO 2.67 (<5); CREATININE FOR GFR 0.72 MG/DL (0.55-1.30); GLOMERULAR FILTRATION RATE > 60.0 (>60); GLUCOSE, FASTING 88 MG/DL (60-100); LDL CHOLESTEROL 104.8 MG/DL (<100); NON-HDL-C 119 MG/DL; POTASSIUM SERUM 4.5 MMOL/L (3.5-5.1); SODIUM LEVEL 137 MMOL/L (136-145); TOTAL PROTEIN 7.1 G/DL (5.7-8.2); TRIGLYCERIDES LEVEL 71 MG/DL (<150)
[2022-03-27 13:09] LABS: THYROID STIMULATING HORMONE 2.219 uIU/ML (0.55-4.78); TOTAL 25(OH) VITAMIN D 20.4 NG/ML (20.0-100.0)
== END ==
LOC: M RAD 11:20
PROVIDERS: ATTEND Family Medicine
DX: D64.9 Anemia, unspecified (principal)

== ENCOUNTER → 2022-10-29 | Outpatient (REF) | payer OTHER | LOC: M SFHCWAGY 13:37 | PROVIDERS: ATTEND Advanced Practice Midwife | DX: Z12.4 Encounter for screening for malignant neoplasm of cervix (principal) ==

== ENCOUNTER 2023-04-26 04:52 | Emergency (ER) | payer OTHER ==
[~2023-04-26] VITALS: Ht 154.9 cm; Wt 55.5 kg
[2023-04-26 06:00] LABS: RSV AMPLIFICATION NEGATIVE (NEGATIVE)
[2023-04-26 07:21] VITALS: BP 108/75; TEMP 98.5; O2SAT 99
[2023-04-26] MEDS ORDERED: ALBU6.7H6 INH (13:34)
[2023-04-26] MEDS ORDERED: ONDA4TAB6 PO (13:34)
== END 2023-04-26 08:39 | disposition left against medical advice (07) ==
LOC: M ED 04:52
DX: Z53.21 Procedure and treatment not carried out due to patient leaving prior to being seen by health care provider (principal)

== ENCOUNTER 2023-04-26 09:23 | Emergency (ER) | payer OTHER ==
[~2023-04-26] VITALS: Ht 154.9 cm; Wt 55.5 kg
[2023-04-26 09:25] VITALS: BP 123/74; TEMP 97.2; O2SAT 100
[2023-04-26 10:58] LABS: RSV AMPLIFICATION NEGATIVE (NEGATIVE)
[2023-04-26 12:46] LABS: HEMATOCRIT 39.6 % (36.0-47.0); HEMOGLOBIN 13.5 g/dl (12.0-15.5); MEAN CORPUSCULAR HEMOGLOBIN 27.9 pg (27.0-33.0); MEAN CORPUSCULAR HGB CONC 34.1 g/dl (32.0-36.5); MEAN CORPUSCULAR VOLUME 81.8 fl (80.0-96.0); PLATELET COUNT, AUTOMATED 348 10^3/uL (150-450); RED BLOOD COUNT 4.84 10^6/uL (4.00-5.40); WHITE BLOOD COUNT 8.7 10^3/uL (4.0-10.0)
[2023-04-26] MEDS ORDERED: ALBU6.7H6 INH (13:34)
[2023-04-26] MEDS ORDERED: ONDA4TAB6 PO (13:34)
== END 2023-04-26 13:43 | disposition home or self-care (01) ==
LOC: M ED 09:23
DX: R42 Dizziness and giddiness (principal); R06.02 Shortness of breath; F17.290 Nicotine dependence, other tobacco product, uncomplicated

== ENCOUNTER 2023-05-03 11:15 | Emergency (ER) | payer OTHER ==
[~2023-05-03] VITALS: Ht 154.9 cm; Wt 54.8 kg
[~2023-05-03 11:15] MED LIST changes: +ALBU6.7H6 INH; +ONDA4TAB6 PO
[2023-05-03 11:16] VITALS: TEMP 98.4
[2023-05-03] MEDS ORDERED: HYDR1CAP25 (11:25)
[2023-05-03] MEDS ORDERED: ALPR0.5T3 (11:25)
[2023-05-03 12:28] LABS: BASO % 0.3 % (0.0-1.0); EOS % 0.4 % (0.0-3.0); HEMATOCRIT 44.1 % (36.0-47.0); HEMOGLOBIN 14.6 g/dl (12.0-15.5); LYMPH # 1.4 10^3/uL (1.5-5.0); LYMPH % 13.6 % (24.0-44.0); MEAN CORPUSCULAR HGB CONC 33.1 g/dl (32.0-36.5); MEAN CORPUSCULAR VOLUME 84.5 fl (80.0-96.0); MONO # 0.6 10^3/uL (0.0-0.8); MONO % 5.5 % (2.0-8.0); NEUTROPHILS # 8.3 10^3/uL (1.5-8.5); NEUTROPHILS % 79.9 % (36.0-66.0); PLATELET COUNT, AUTOMATED 395 10^3/uL (150-450); RED BLOOD COUNT 5.22 10^6/uL (4.00-5.40); WHITE BLOOD COUNT 10.4 10^3/uL (4.0-10.0)
[2023-05-03 12:47] LABS: INR 1.02; PARTIAL THROMBOPLASTIN TIME 26.4 SECONDS (24.8-34.2); PROTHROMBIN TIME 13.1 SECONDS (12.5-14.5)
[2023-05-03 13:17] LABS: CK-MB VALUE MASS < 1.0 NG/ML (<3.6)
[2023-05-03 13:19] LABS: CPK CREATINE PHOSPHOKINASE 73 U/L (34-145); MB/CK RELATIVE INDEX 1.36 (< OR =4)
[2023-05-03 13:22] LABS: THYROID STIMULATING HORMONE 1.827 uIU/ML (0.55-4.78)
[2023-05-03] MEDS ORDERED: NS 1,000 ML IV ONE (13:50)
[2023-05-03] MEDS ORDERED: ISOVUE-370 76% 100ML VIAL As Ordered ONE (13:57)
[2023-05-03 17:00] VITALS: BP 115/70; O2SAT 98
[2023-05-03] MEDS ORDERED: PROP10TA56 PO (17:25)
== END 2023-05-03 17:36 | disposition home or self-care (01) ==
LOC: M ED 11:15
DX: G90.A Postural orthostatic tachycardia syndrome [POTS] (principal); R94.31 Abnormal electrocardiogram [ECG] [EKG]; F12.10 Cannabis abuse, uncomplicated; Z79.51 Long term (current) use of inhaled steroids; Z79.899 Other long term (current) drug therapy
CPT/HCPCS: 71275; 80047; 82550; 82553; 84443; 84702; 85025; 85610; 85730; 87486; 87581; 87633; 87798; 93005; 96360; 96361; 99284; Q9967

== ENCOUNTER → 2023-05-05 | Outpatient (CLI) | payer OTHER ==
[~2023-05-05] MED LIST changes: +ALPR0.5T3; +HYDR1CAP25; +PROP10TA56 PO
[2023-05-05 12:57] LABS: HEMATOCRIT 39.3 % (36.0-47.0); HEMOGLOBIN 12.9 g/dl (12.0-15.5); MEAN CORPUSCULAR HEMOGLOBIN 27.5 pg (27.0-33.0); MEAN CORPUSCULAR HGB CONC 32.8 g/dl (32.0-36.5); MEAN CORPUSCULAR VOLUME 83.8 fl (80.0-96.0); PLATELET COUNT, AUTOMATED 363 10^3/uL (150-450); RED BLOOD COUNT 4.69 10^6/uL (4.00-5.40); WHITE BLOOD COUNT 7.6 10^3/uL (4.0-10.0)
[2023-05-05 13:28] LABS: ALBUMIN 4.5 G/DL (3.2-5.2); ALKALINE PHOSPHATASE 36 U/L (46-116); ALT/SGPT < 9 U/L (7.0-40); AST/SGOT 9 U/L (<34); BILIRUBIN,TOTAL 0.5 MG/DL (0.3-1.2); BLOOD UREA NITROGEN 14 MG/DL (9-23); CALCIUM LEVEL 9.6 MG/DL (8.5-10.1); CARBON DIOXIDE LEVEL 28 MMOL/L (20-31); CHLORIDE LEVEL 106 MMOL/L (98-107); CHOLESTEROL LEVEL 191 MG/DL (<200); CHOLESTEROL RISK RATIO 3.34 (<5); CREATININE FOR GFR 0.61 MG/DL (0.55-1.30); GLOMERULAR FILTRATION RATE > 60.0 (>60); GLUCOSE, FASTING 95 MG/DL (60-100); HDL CHOLESTEROL 57.1 MG/DL (>40); IRON (FE) 73 UG/DL (50-170); LDL CHOLESTEROL 109.7 MG/DL (<100); NON-HDL-C 133.9 MG/DL; PERCENT SATURATION 22.6 % (13.2-45.0); SODIUM LEVEL 141 MMOL/L (136-145); TOTAL IRON BINDING CAPACITY 323 UG/DL (250-425); TOTAL PROTEIN 7.2 G/DL (5.7-8.2); TOTAL T3 94.2 NG/DL (60.0-181.0); TRIGLYCERIDES LEVEL 121 MG/DL (<150)
[2023-05-05 13:29] LABS: FOLLICLE STIMULATING HORMONE 5.9 mIU/ML; THYROID STIMULATING HORMONE 2.495 uIU/ML (0.55-4.78); THYROXINE (T4) 9.6 UG/DL (4.5-10.9); TOTAL 25(OH) VITAMIN D 24.4 NG/ML (20.0-100.0)
[2023-05-05 13:30] LABS: ESTRADIOL 71.3 PG/ML; LUTEINIZING HORMONE 3.1 mIU/ML
== END ==
LOC: M EKG 12:13
PROVIDERS: ATTEND Family Medicine
DX: D64.9 Anemia, unspecified (principal); R53.83 Other fatigue; E03.9 Hypothyroidism, unspecified; R94.31 Abnormal electrocardiogram [ECG] [EKG]

== ENCOUNTER → 2023-05-07 | Outpatient (CLI) | payer MEDICAID, OTHER | LOC: M CARPUL 14:08 | PROVIDERS: ATTEND Family Medicine | DX: R01.1 Cardiac murmur, unspecified (principal) ==

== ENCOUNTER → 2023-05-08 | Outpatient (CLI) | payer OTHER | LOC: M EKG 13:37 | PROVIDERS: ATTEND Family Medicine | DX: Z53.9 Procedure and treatment not carried out, unspecified reason (principal) ==

== ENCOUNTER → 2023-05-15 | Outpatient (CLI) | payer OTHER | LOC: M RAD 07:27 | PROVIDERS: ATTEND Family Medicine | DX: R10.11 Right upper quadrant pain (principal); R11.0 Nausea ==

== ENCOUNTER → 2023-06-26 | Outpatient (CLI) | payer OTHER | LOC: M RAD 09:57 | PROVIDERS: ATTEND Family Medicine | DX: J20.9 Acute bronchitis, unspecified (principal) ==

== ENCOUNTER → 2024-06-14 | Outpatient (CLI) | payer OTHER ==
[~2024-06-14] MED LIST changes: +ONDA-282 PO; -ONDA4TAB6 PO
[2024-06-14 11:04] LABS: HEMATOCRIT 41.1 % (36.0-47.0); HEMOGLOBIN 13.4 g/dl (12.0-15.5); MEAN CORPUSCULAR HEMOGLOBIN 26.7 pg (27.0-33.0); MEAN CORPUSCULAR HGB CONC 32.6 g/dl (32.0-36.5); MEAN CORPUSCULAR VOLUME 81.9 fl (80.0-96.0); PLATELET COUNT, AUTOMATED 296 10^3/uL (150-450); RED BLOOD COUNT 5.02 10^6/uL (4.00-5.40); WHITE BLOOD COUNT 5.9 10^3/uL (4.0-10.0)
[2024-06-14 11:27] LABS: ALBUMIN 3.9 G/DL (3.2-5.2); ALKALINE PHOSPHATASE 50 U/L (35-104); ALT/SGPT 12 U/L (7.0-40); AST/SGOT 11 U/L (<34); BILIRUBIN,TOTAL 0.5 MG/DL (0.3-1.2); BLOOD UREA NITROGEN 11 MG/DL (9-23); CALCIUM LEVEL 9.4 MG/DL (8.5-10.1); CARBON DIOXIDE LEVEL 28 MMOL/L (20-31); CHLORIDE LEVEL 105 MMOL/L (98-107); CREATININE FOR GFR 0.77 MG/DL (0.55-1.30); GLOMERULAR FILTRATION RATE > 60.0 (>60); GLUCOSE, FASTING 85 MG/DL (60-100); IRON (FE) 66 UG/DL (50-170); PERCENT SATURATION 21.6 % (13.2-45.0); POTASSIUM SERUM 4.1 MMOL/L (3.5-5.1); SODIUM LEVEL 140 MMOL/L (136-145); TOTAL IRON BINDING CAPACITY 306 UG/DL (250-425); TOTAL PROTEIN 6.9 G/DL (5.7-8.2)
[2024-06-14 11:29] LABS: THYROID STIMULATING HORMONE 3.297 uIU/ML (0.55-4.78)
[2024-06-14 11:30] LABS: TOTAL 25(OH) VITAMIN D 71.7 NG/ML (20.0-100.0)
== END ==
LOC: M RAD 09:42
PROVIDERS: ATTEND Family Medicine
DX: D64.9 Anemia, unspecified (principal)

== ENCOUNTER → 2024-08-04 | Outpatient (REF) | payer OTHER, MEDICAID | LOC: M LAB REF 17:06 | PROVIDERS: ATTEND Physician Assistant | DX: J03.90 Acute tonsillitis, unspecified (principal) ==

== ENCOUNTER → 2024-11-18 | Outpatient (REF) | payer MEDICAID, OTHER ==
[~2024-11-18] MED LIST changes: +MELA5TAB44 PO; -MELA5TAB7 PO
== END ==
LOC: M LAB REF 13:17
PROVIDERS: ATTEND Nurse Practitioner Family
DX: D22.62 Melanocytic nevi of left upper limb, including shoulder (principal)

== ENCOUNTER → 2025-02-26 | Outpatient (REF) | payer MEDICAID, OTHER | LOC: M LAB REF 17:10 | DX: B34.9 Viral infection, unspecified (principal) ==

== ENCOUNTER → 2025-03-15 | Outpatient (CLI) | payer OTHER ==
[2025-03-15 09:28] LABS: BASO # 0.0 10^3/uL (0.0-0.2); BASO % 0.3 % (0.0-1.0); EOS # 0.1 10^3/uL (0.0-0.5); EOS % 0.5 % (0.0-3.0); LYMPH # 1.3 10^3/uL (1.5-5.0); LYMPH % 12.9 % (24.0-44.0); MONO # 0.7 10^3/uL (0.0-0.8); MONO % 6.5 % (2.0-8.0); NEUTROPHILS # 8.2 10^3/uL (1.5-8.5); NEUTROPHILS % 79.5 % (36.0-66.0); PLATELET COUNT, AUTOMATED 341 10^3/uL (150-450)
[2025-03-15 09:49] LABS: IRON (FE) 30.0 UG/DL (50-170)
[2025-03-15 09:50] LABS: PERCENT SATURATION 10.2 % (13.2-45.0)
== END ==
LOC: M LAB 08:59
PROVIDERS: ATTEND Nurse Practitioner Adult Health
DX: D50.9 Iron deficiency anemia, unspecified (principal)

== ENCOUNTER → 2025-03-26 | Outpatient (REF) | payer OTHER ==
[2025-03-26 18:32] LABS: APPEARANCE, URINE HAZY (CLEAR); BACTERIA, URINE AUTO 1+ (NEGATIVE); BILIRUBIN, URINE AUTO NEGATIVE (NEGATIVE); BLOOD, URINE BLOOD 1+ (NEGATIVE); GLUCOSE, URINE (UA) AUTO NEGATIVE (NEGATIVE); KETONE, URINE AUTO NEGATIVE (NEGATIVE); LEUKOCYTE ESTERASE, URINE AUTO 2+ (NEGATIVE); MUCUS, URINE SMALL (NEGATIVE); NITRITE, URINE AUTO POSITIVE (NEGATIVE); PROTEIN, URINE AUTO NEGATIVE (NEGATIVE); RBC, URINE AUTO 5 /HPF (0-3); SPECIFIC GRAVITY URINE AUTO 1.012 (1.002-1.035); SQUAMOUS EPITHELIAL CELL UR AU 5 /HPF (0-6); UROBILINOGEN, URINE AUTO 4.0 mg/dL (0.0-2.0); WBC, URINE AUTO TNTC /HPF (0-3)
== END ==
LOC: M LAB REF 11:30
DX: N39.0 Urinary tract infection, site not specified (principal)

== ENCOUNTER 2025-04-05 11:50 | Outpatient (CLI) | payer OTHER ==
[~2025-04-05] VITALS: Ht 154.9 cm; Wt 55.9 kg
[~2025-04-05 11:50] MED LIST changes: +ALBUTEROL SULFATE 2.5 MG/0.5 ML INH CONCENTRATE NEB SOLN INH PRN; +EPINEPHrine INJ 1 MG/ML 1ML AMP IM PRN; +diphenhydrAMINE 50 MG/ML VIAL IV PRN
[2025-04-05 12:15] VITALS: BP 123/73; O2SAT 99
[2025-04-05] MEDS: IRON SUCROSE 500 MG in NS 250 ML IV ONE (13:29)
[2025-04-05] MEDS: ACETAMINOPHEN 325 MG TAB PO ONE (14:28)
[2025-04-05 16:34] VITALS: BP 116/75; O2SAT 98
[2025-04-05 17:43] VITALS: BP 97/69; O2SAT 97
== END 2025-04-05 17:50 | disposition home or self-care (01) ==
LOC: M INFU 11:50
PROVIDERS: ATTEND Nurse Practitioner Adult Health
DX: D50.9 Iron deficiency anemia, unspecified (principal)
CPT/HCPCS: 96365; 96366; J1756

== ENCOUNTER → 2025-04-10 | Outpatient (REF) | payer MEDICAID, OTHER ==
[~2025-04-10] MED LIST changes: -ALBUTEROL SULFATE 2.5 MG/0.5 ML INH CONCENTRATE NEB SOLN INH PRN; -EPINEPHrine INJ 1 MG/ML 1ML AMP IM PRN; +PEPC1TAB5 PO; -diphenhydrAMINE 50 MG/ML VIAL IV PRN
[2025-04-10 13:21] LABS: APPEARANCE, URINE CLEAR (CLEAR); BACTERIA, URINE AUTO 1+ (NEGATIVE); BILIRUBIN, URINE AUTO NEGATIVE (NEGATIVE); BLOOD, URINE BLOOD NEGATIVE (NEGATIVE); GLUCOSE, URINE (UA) AUTO NEGATIVE (NEGATIVE); KETONE, URINE AUTO NEGATIVE (NEGATIVE); LEUKOCYTE ESTERASE, URINE AUTO NEGATIVE (NEGATIVE); MUCUS, URINE SMALL (NEGATIVE); NITRITE, URINE AUTO POSITIVE (NEGATIVE); PROTEIN, URINE AUTO NEGATIVE (NEGATIVE); RBC, URINE AUTO 1 /HPF (0-3); SPECIFIC GRAVITY URINE AUTO 1.026 (1.002-1.035); SQUAMOUS EPITHELIAL CELL UR AU 2 /HPF (0-6); UROBILINOGEN, URINE AUTO 4.0 mg/dL (0.0-2.0); WBC, URINE AUTO 6 /HPF (0-3)
== END ==
LOC: M LAB REF 12:51
DX: N39.0 Urinary tract infection, site not specified (principal)

== ENCOUNTER → 2025-04-10 | Outpatient (CLI) | payer OTHER | LOC: M RAD 13:50 | DX: N39.0 Urinary tract infection, site not specified (principal) ==

== ENCOUNTER 2025-04-12 17:30 | Emergency (ER) | payer OTHER ==
[~2025-04-12] VITALS: Ht 154.9 cm; Wt 55.3 kg
[~2025-04-12 17:30] MED LIST changes: -ALBUTEROL SULFATE 2.5 MG/0.5 ML INH CONCENTRATE NEB SOLN INH PRN; -EPINEPHrine INJ 1 MG/ML 1ML AMP IM PRN; -PEPC1TAB5 PO; -diphenhydrAMINE 50 MG/ML VIAL IV PRN
[2025-04-12] MEDS ORDERED: PEPC1TAB5 PO (23:19)
[2025-04-12] MEDS: dexAMETHasone 4 MG/ML 1 ML VIAL PO ONE (23:39)
[2025-04-12] MEDS: FAMOTIDINE 20 MG TAB PO ONE (23:39)
[2025-04-12 23:47] VITALS: BP 127/88; TEMP 97.3; O2SAT 98
== END 2025-04-12 23:50 | disposition home or self-care (01) ==
LOC: M ED 17:30
DX: T78.40XA Allergy, unspecified, initial encounter (principal); R00.0 Tachycardia, unspecified; F41.9 Anxiety disorder, unspecified; Z88.8 Allergy status to other drugs, medicaments and biological substances; Z79.51 Long term (current) use of inhaled steroids; Z79.899 Other long term (current) drug therapy
CPT/HCPCS: 93005; 96365; 96366; 99284; J1100; J1756

== ENCOUNTER → 2025-04-12 | Outpatient (CLI) | payer OTHER ==
[~2025-04-12] VITALS: Ht 154.9 cm; Wt 55.9 kg
[~2025-04-12] MED LIST changes: +ALBUTEROL SULFATE 2.5 MG/0.5 ML INH CONCENTRATE NEB SOLN INH PRN; +EPINEPHrine INJ 1 MG/ML 1ML AMP IM PRN; +diphenhydrAMINE 50 MG/ML VIAL IV PRN
[2025-04-12 11:45] VITALS: BP 127/85; O2SAT 98
[2025-04-12] MEDS: ACETAMINOPHEN 650 MG PO ONE (12:21)
[2025-04-12] MEDS: IRON SUCROSE 500 MG in NS 250 ML IV ONE (12:21)
[2025-04-12 13:20] VITALS: BP 130/84; O2SAT 97
[2025-04-12 14:20] VITALS: BP 129/80; O2SAT 99
[2025-04-12 16:25] VITALS: BP 110/73; O2SAT 99
== END ==
LOC: M INFU 11:35
PROVIDERS: ATTEND Nurse Practitioner Adult Health
DX: D50.9 Iron deficiency anemia, unspecified (principal); Z91.09 Other allergy status, other than to drugs and biological substances